=== PATIENT | female | born 2005 | race Caucasian/White ===

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

== ENCOUNTER 2023-05-13 12:11 | Inpatient (IN) | payer OTHER ==
[2023-05-13 12:27] VITALS: BMI 44.6
[2023-05-13] MEDS ORDERED: SODIUM CHLORIDE 1,000 ML IV STA (14:17)
[2023-05-13] MEDS ORDERED: ACETAMINOPHEN 1000 MG/100 ML BAG IVPB ONE (14:18)
[2023-05-13] MEDS ORDERED: ACETAMINOPHEN INJECTION 100 ML IVPB ONE (14:30)
[2023-05-13 14:59] LABS: BASO % 0.3 % (0-2.0); EOS % 0.4 % (0-4.5); HEMATOCRIT 37.2 % (32.4-45.2); HEMOGLOBIN 12.4 GM/dL (10.7-15.3); LYMPH % 13.7 % (8-40); MCH 26.9 pg (25.7-33.7); MCHC 33.3 g/dl (32.0-36.0); MEAN CELL VOLUME 80.8 fl (80-96); MEAN PLT VOLUME 8.1 fl (7.5-11.1); MONO % 5.7 % (3.8-10.2); NEUT % 79.9 % (42.8-82.8); PLATELET COUNT 269 10^3/uL (134-434); RBC 4.61 M/mm3 (3.60-5.2); WHITE BLOOD COUNT 10.5 K/mm3 (4.0-10.0)
[2023-05-13 15:00] LABS: HCG,QUALITATIVE URINE Positive
[2023-05-13 15:04] LABS: EPI CELLS 19 /uL (0-25.1); HYALINE CASTS 0 /uL (0-3.1); PH,URINE 7.5 (5.0-8.0); URINE APPEARANCE CLEAR; URINE BACTERIA 492 /uL (0-1359); URINE BILIRUBIN NEGATIVE (NEGATIVE); URINE COLOR YELLOW; URINE GLUCOSE (UA) NEGATIVE (NEGATIVE); URINE KETONE NEGATIVE (NEGATIVE); URINE LEUK ESTERASE 2+ (NEGATIVE); URINE NITRITE NEGATIVE (NEGATIVE); URINE PROTEIN TRACE (NEGATIVE); URINE RBC 9 /uL (0-23.9); URINE WBC 265 /uL (0-25.8)
[2023-05-13 15:13] LABS: INR 1.04 (0.83-1.09); PROTHROMBIN TIME (PATIENT) 12.1 SEC (9.7-13.0)
[2023-05-13 15:20] LABS: POTASSIUM 3.9 mmol/L (3.5-5.1)
[2023-05-13 15:21] LABS: CALCIUM 9.1 mg/dL (8.5-10.1)
[2023-05-13 15:22] LABS: ALBUMIN 2.8 g/dl (3.4-5.0); BLOOD UREA NITROGEN 5.9 mg/dL (7-18)
[2023-05-13 15:25] LABS: CREATININE 0.6 mg/dL (0.55-1.3)
[2023-05-13 15:27] LABS: BILIRUBIN,TOTAL 0.4 mg/dL (0.2-1); TOT PROT 7.5 g/dl (6.4-8.2)
[2023-05-13] MEDS ORDERED: ELECTROLYTE-148 SOLN 1,000 ML IV SCH ×3 (19:05→21:15)
[2023-05-13] MEDS ORDERED: AMPICILLIN SODIUM 2 GM VIAL ONE (20:05)
[2023-05-13] MEDS ORDERED: LIDOCAINE HCL/EPINEPHRINE/PF 10 ML VIAL ONE (20:30)
[2023-05-13] MEDS ORDERED: BUPIVACAINE HCL/PF 0.25% (2.5MG/ML) 10 ML VIAL ONE (20:30)
[2023-05-13] MEDS ORDERED: FENTANYL/BUPIVACAINE/NS/PF - PCEA - 50 ML DISP.SYRIN EP ONE (20:32)
[2023-05-13 20:49] LABS: HIV INTERPRETATION NEGATIVE (NEGATIVE)
[2023-05-13] MEDS ORDERED: NALOXONE HCL 0.4 MG/ML VIAL IVPUSH PRN (20:51)
[2023-05-13] MEDS ORDERED: FENTANYL/BUPIVACAINE/NS/PF - PCEA - 50 ML DISP.SYRIN EP SCH (21:00)
[2023-05-13] MEDS ORDERED: ELECTROLYTE-148 SOLN 500 ML IV ONE (21:05)
[2023-05-13] MEDS ORDERED: AMPICILLIN - 2 GM in SODIUM CHLORIDE 100 ML IVPB ONE (21:08)
[2023-05-13] MEDS ORDERED: morphine SULFATE/PF 1 MG/2 ML (2cc Syringe - QUVA) ONE (22:00)
[2023-05-13] MEDS ORDERED: FENTANYL CITRATE/PF 50 MCG/ML VIAL ONE (22:00)
[2023-05-13] MEDS ORDERED: OXYTOCIN 10 UNITS/ML VIAL ONE ×2 (22:02)
[2023-05-13] MEDS ORDERED: MIDAZOLAM HCL 2 MG/2 ML SINGLE DOSE VIAL ONE (22:08)
[2023-05-13 22:32] LABS: CORD BASE EXCESS -4.4 mmol/L (0-2); CORD HCO3 23.4 mmHg (20-29); CORD pH 7.254 (7.14-7.44)
[2023-05-13 22:35] LABS: CORD BASE EXCESS -3.5 mmol/L (0-2); CORD HCO3 22.8 mmHg (20-29); CORD PCO2 45.8 mmHg (30-78); CORD pH 7.315 (7.14-7.44)
[2023-05-13] MEDS ORDERED: OXYTOCIN 20 UNITS in 0.9% NS 20 UNIT/1,000 ML INFUS.BAG IV ONE (23:12)
[2023-05-13] MEDS ORDERED: METHYLERGONOVINE MALEATE 0.2 MG/1 ML AMP IM PRN (23:31)
[2023-05-13] MEDS ORDERED: ACETAMINOPHEN 325 MG TABLET (FP) PO PRN (23:31)
[2023-05-13] MEDS ORDERED: OXYTOCIN 20 UNITS in 0.9% NS 20 UNIT/1,000 ML INFUS.BAG IV SCH (23:45)
[2023-05-14 00:06] LABS: COCAINE, UR NEGATIVE (NEGATIVE); METHADONE, UR NEGATIVE (NEGATIVE); OPIATES, URI NEGATIVE (NEGATIVE); PHENCYCLIDINE,URINE NEGATIVE (NEGATIVE); URINE BARBITURATES NEGATIVE (NEGATIVE)
[2023-05-14 00:42] LABS: URINE AMPHETAMINES NEGATIVE (NEGATIVE); URINE BENZODIAZEPINES POSITIVE (NEGATIVE)
[2023-05-14] MEDS ORDERED: AMPICILLIN - 1 GM in SODIUM CHLORIDE 100 ML IVPB SCH (01:15)
[2023-05-14] MEDS ORDERED: ONDANSETRON 4 MG/2 ML VIAL IVPUSH PRN (01:15)
[2023-05-14 08:55] LABS: BASO % 0.1 % (0-2.0); EOS % 0.1 % (0-4.5); HEMATOCRIT 30.9 % (32.4-45.2); HEMOGLOBIN 10.1 GM/dL (10.7-15.3); LYMPH % 9.6 % (8-40); MCHC 32.8 g/dl (32.0-36.0); MEAN CELL VOLUME 82.6 fl (80-96); MEAN PLT VOLUME 7.9 fl (7.5-11.1); MONO % 7.2 % (3.8-10.2); PLATELET COUNT 230 10^3/uL (134-434); RBC 3.74 M/mm3 (3.60-5.2); RDW 14.8 % (11.6-15.6); WHITE BLOOD COUNT 13.7 K/mm3 (4.0-10.0)
[2023-05-14] MEDS ORDERED: oxyCODONE HCL 5 MG TABLET PO PRN ×2 (11:31)
[2023-05-14] MEDS: IBUPROFEN 600 MG TABLET (FP) PO PRN ×2 (15:18→22:32)
[2023-05-14] MEDS: SIMETHICONE 80 MG TAB.CHEW (FP) PO PRN (22:33)
[2023-05-14] MEDS ORDERED: BISACODYL 10 MG SUPP.RECT RC PRN (23:31)
[2023-05-15] MEDS: IBUPROFEN 600 MG TABLET (FP) PO PRN ×2 (10:55→19:19)
[2023-05-15] MEDS: SIMETHICONE 80 MG TAB.CHEW (FP) PO PRN (19:21)
[2023-05-16 09:06] LABS: BASO % 0.3 % (0-2.0); EOS % 2.3 % (0-4.5); HEMATOCRIT 28.1 % (32.4-45.2); HEMOGLOBIN 9.5 GM/dL (10.7-15.3); LYMPH % 13.8 % (8-40); MCH 27.5 pg (25.7-33.7); MCHC 33.9 g/dl (32.0-36.0); MEAN PLT VOLUME 8.3 fl (7.5-11.1); NEUT % 74.6 % (42.8-82.8); PLATELET COUNT 227 10^3/uL (134-434); RBC 3.48 M/mm3 (3.60-5.2); WHITE BLOOD COUNT 9.5 K/mm3 (4.0-10.0)
[2023-05-16 09:20] VITALS: BP 127/61; PULSE 112; RESP 18; TEMP 98.5
[2023-05-16] MEDS ORDERED: FLU VACCINE (FLULAVAL) PF 60 MCG/0.5 ML SYRINGE 2023-2024 IM ONE (10:00)
[2023-05-16] MEDS ORDERED: DIPHTH,PERTUSS(ACELL),TET 0.5 ML DISP.SYRIN IM ONE (10:00)
[2023-05-16] MEDS: IBUPROFEN 600 MG TABLET (FP) PO PRN (12:50)
== END 2023-05-16 13:08 | disposition home or self-care (01) | DRG 788 ==
LOC: JER 12:11 → JLDR 19:25 → J3W 05-14 00:12
PROVIDERS: ADMIT Obstetrics & Gynecology; ATTEND Obstetrics & Gynecology
PROC: 10D00Z1 Extraction of Products of Conception, Low, Open Approach (ICD-10-PCS; principal; 2023-05-13)
DX: O36.8330 Maternal care for abnormalities of the fetal heart rate or rhythm, third trimester, not applicable or unspecified (principal); O99.213 Obesity complicating pregnancy, third trimester; Z3A.37 37 weeks gestation of pregnancy; Z37.0 Single live birth
CPT/HCPCS: 36415; 36600; 76801-TC; 76819-TC; 80053; 80307; 81003; 82570; 82803; 83010; 83690; 84156; 84450; 84702; 84703; 85025; 85045; 85610; 85730; 86780; 86850; 86900; 86901; 87086; 87340; 87389; 88307-TC; 90686; 90715; 99285-25; G0008